=== PATIENT | male | born 1945 | race Caucasian/White ===

== ENCOUNTER → 2021-06-11 | Outpatient (CLI) | payer OTHER ==
[~2021-06-11] MED LIST: B-121000 MCG PO; DABI150C PO; DIGO.125 PO; ERYT.5TO OS; GLIM4 PO; KRILL OIL500 MG PO; LISI20 PO; METF500 PO; METO50 PO; SIMV10 PO; SITA100T2 PO; TAMS.4ER PO
== END | disposition home or self-care (01) ==
LOC: LAB 14:09 → LAB SHORT 14:09
DX: L57.0 Actinic keratosis (principal)
CPT/HCPCS: 88305

== ENCOUNTER 2022-10-31 08:36 | Emergency (ER) | payer OTHER ==
[~2022-10-31] VITALS: Ht 170.2 cm; Wt 106.6 kg
[2022-10-31] MEDS ORDERED: JANTOVEN4 M2 PO (09:09)
[2022-10-31 09:40] LABS: BASOPHILS ABSOLUTE AUTO 0.03 K/mm3 (0.00-0.23); BASOPHILS PERCENT AUTO 0 % (0-2); EOSINOPHILS ABSOLUTE AUTO 0.57 K/mm3 (0.00-0.68); EOSINOPHILS PERCENT AUTO 5 % (0-6); Hemoglobin 11.1 g/dL (13.5-17.5); IMMATURE GRAN ABSOLUTE AUTO 0.12 K/mm3 (0.00-0.10); IMMATURE GRAN PERCENT AUTO 1 % (0-1); LYMPHOCYTES ABSOLUTE AUTO 1.47 K/mm3 (0.84-5.20); LYMPHOCYTES PERCENT AUTO 12 % (21-46); MONOCYTES ABSOLUTE AUTO 1.15 K/mm3 (0.16-1.47); MONOCYTES PERCENT AUTO 9 % (4-13); Mean Corpuscular HGB 28.2 pg (26.0-34.0); Mean Corpuscular HGB Conc 31.7 g/dL (31.5-36.5); Mean Corpuscular Volume 89 fL (80-100); Mean Platelet Volume 10.3 fL (9.1-12.4); NEUTROPHILS ABSOLUTE AUTO 8.99 K/mm3 (1.96-9.15); NEUTROPHILS PERCENT AUTO 73 % (41-73); Platelet Count 203 K/mm3 (150-400); RDW Coefficient Variation 16.1 % (11.7-14.2); RDW Standard Deviation 52.5 fL (35.1-46.3); Red Blood Cell Count 3.94 M/mm3 (4.30-5.90); White Blood Cell Count 12.33 K/mm3 (4.00-11.30)
[2022-10-31 09:50] LABS: Albumin/Globulin Ratio 0.7 (0.8-1.8); Bilirubin, Total 2.3 mg/dL (0.1-1.0); Bun/Creatinine Ratio 24.3 (12.0-20.0); Calcium, Blood 10.3 mg/dL (8.5-10.1); Creatinine, Blood 1.03 mg/dL (0.60-1.20); Globulin, Blood 4.1 g/dL (2.2-4.0); Potassium, Blood 4.3 mmol/L (3.5-5.5); Total Protein, Blood 7.1 g/dL (6.4-8.2)
[2022-10-31 10:03] LABS: Prothrombin Time Results >90.0 Sec (9.7-11.5)
[2022-10-31 10:07] LABS: International Normalized Ratio >10.00
== END 2022-10-31 12:42 | disposition home or self-care (01) ==
LOC: ER 08:36
PROVIDERS: Physician Assistant
DX: R07.9 Chest pain, unspecified (principal); R79.1 Abnormal coagulation profile; E11.9 Type 2 diabetes mellitus without complications; I48.91 Unspecified atrial fibrillation; G47.30 Sleep apnea, unspecified; Z88.0 Allergy status to penicillin; Z95.0 Presence of cardiac pacemaker; Z79.899 Other long term (current) drug therapy; Z79.01 Long term (current) use of anticoagulants; Z79.84 Long term (current) use of oral hypoglycemic drugs
CPT/HCPCS: 71045; 76705; 80053; 83880; 84484; 85025; 85610; 93005; 93010; 99285-25; A9270

== ENCOUNTER → 2023-02-04 | Outpatient (CLI) | payer OTHER ==
[~2023-02-04] MED LIST changes: +JANTOVEN4 M2 PO
[2023-02-04 14:15] LABS: BASOPHILS ABSOLUTE AUTO 0.06 K/mm3 (0.00-0.23); BASOPHILS PERCENT AUTO 1 % (0-2); EOSINOPHILS ABSOLUTE AUTO 0.52 K/mm3 (0.00-0.68); EOSINOPHILS PERCENT AUTO 9 % (0-6); IMMATURE GRAN ABSOLUTE AUTO 0.04 K/mm3 (0.00-0.10); IMMATURE GRAN PERCENT AUTO 1 % (0-1); LYMPHOCYTES PERCENT AUTO 24 % (21-46); MONOCYTES ABSOLUTE AUTO 0.67 K/mm3 (0.16-1.47); MONOCYTES PERCENT AUTO 12 % (4-13); Mean Corpuscular HGB 28.6 pg (26.0-34.0); Mean Corpuscular HGB Conc 32.1 g/dL (31.5-36.5); Mean Corpuscular Volume 89 fL (80-100); Mean Platelet Volume 8.8 fL (9.1-12.4); NEUTROPHILS ABSOLUTE AUTO 2.94 K/mm3 (1.96-9.15); NEUTROPHILS PERCENT AUTO 53 % (41-73); Platelet Count 218 K/mm3 (150-400); RDW Coefficient Variation 18.3 % (11.7-14.2); RDW Standard Deviation 58.7 fL (35.1-46.3); Red Blood Cell Count 3.15 M/mm3 (4.30-5.90); White Blood Cell Count 5.53 K/mm3 (4.00-11.30)
[2023-02-04 15:04] LABS: Albumin, Blood 3.1 g/dL (3.4-5.0); Albumin/Globulin Ratio 1.1 (0.8-1.8); Bilirubin, Total 0.8 mg/dL (0.1-1.0); Bun/Creatinine Ratio 13.4 (12.0-20.0); Calcium, Blood 8.6 mg/dL (8.5-10.1); Creatinine, Blood 1.12 mg/dL (0.60-1.20); Globulin, Blood 2.9 g/dL (2.2-4.0); Potassium, Blood 3.6 mmol/L (3.5-5.5)
== END | disposition home or self-care (01) ==
LOC: LAB SHORT 14:10 → LAB 14:10
PROVIDERS: Physician Assistant
DX: N18.9 Chronic kidney disease, unspecified (principal); M79.89 Other specified soft tissue disorders
CPT/HCPCS: 80053; 83880; 85025

== ENCOUNTER 2023-02-28 21:42 | Inpatient (IN) | payer OTHER ==
[~2023-02-28] VITALS: Ht 172.7 cm; Wt 106.0 kg
[2023-02-28 22:26] LABS: Bicarbonate Venous 25.1 mmol/L (24.0-30.0); PCO2 Venous 39.1 mmHg (38-42); pH Blood Venous 7.42 (7.34-7.37)
[2023-02-28 22:28] LABS: BASOPHILS ABSOLUTE AUTO 0.03 K/mm3 (0.00-0.23); BASOPHILS PERCENT AUTO 0 % (0-2); EOSINOPHILS ABSOLUTE AUTO 0.18 K/mm3 (0.00-0.68); EOSINOPHILS PERCENT AUTO 3 % (0-6); Hematocrit 26.2 % (37.0-53.0); Hemoglobin 8.5 g/dL (13.5-17.5); IMMATURE GRAN ABSOLUTE AUTO 0.33 K/mm3 (0.00-0.10); IMMATURE GRAN PERCENT AUTO 5 % (0-1); LYMPHOCYTES ABSOLUTE AUTO 0.38 K/mm3 (0.84-5.20); LYMPHOCYTES PERCENT AUTO 6 % (21-46); MONOCYTES ABSOLUTE AUTO 0.77 K/mm3 (0.16-1.47); MONOCYTES PERCENT AUTO 11 % (4-13); Mean Corpuscular HGB 29.7 pg (26.0-34.0); Mean Corpuscular HGB Conc 32.4 g/dL (31.5-36.5); Mean Corpuscular Volume 92 fL (80-100); Mean Platelet Volume 9.7 fL (9.1-12.4); NEUTROPHILS PERCENT AUTO 75 % (41-73); Platelet Count 126 K/mm3 (150-400); RDW Coefficient Variation 18.7 % (11.7-14.2); RDW Standard Deviation 62.7 fL (35.1-46.3); Red Blood Cell Count 2.86 M/mm3 (4.30-5.90); White Blood Cell Count 6.79 K/mm3 (4.00-11.30)
[2023-02-28 22:36] LABS: Influenza A, PCR NEGATIVE (NEGATIVE); Influenza B, PCR NEGATIVE (NEGATIVE); Resp Syncytial Virus, PCR NEGATIVE (NEGATIVE)
[2023-02-28 22:47] LABS: Albumin, Blood 3.1 g/dL (3.4-5.0); Albumin/Globulin Ratio 1.1 (0.8-1.8); Bilirubin, Total 0.9 mg/dL (0.1-1.0); Bun/Creatinine Ratio 16.4 (12.0-20.0); Calcium, Blood 8.3 mg/dL (8.5-10.1); Creatinine, Blood 1.22 mg/dL (0.60-1.20); Globulin, Blood 2.8 g/dL (2.2-4.0); Potassium, Blood 4.5 mmol/L (3.5-5.5); Total Protein, Blood 5.9 g/dL (6.4-8.2)
[2023-02-28] MEDS ORDERED: FUROSEMIDE40 MG PO (23:26)
[2023-02-28] MEDS ORDERED: ELIQUIS2.5 M1 PO (23:26)
[2023-02-28 23:28] LABS: SARS-Cov-2 (COVID-19) PCR, MMC POSITIVE (NEGATIVE)
[2023-02-28] MEDS ORDERED: SEMGLEE (Y100 UNIT/2 SC (23:28)
[2023-02-28] MEDS ORDERED: K-Dur10 MEQ PO (23:28)
[2023-02-28] MEDS ORDERED: ALLO300 PO (23:29)
[2023-02-28] MEDS ORDERED: ATOR20 PO (23:30)
[2023-03-01 02:23] LABS: Digoxin (Lanoxin) 0.56 ug/mL (0.80-2.00)
[2023-03-01 02:27] VITALS: BP 112/69
--- NOTE | 2023-03-01 06:41 | NUR ---
SHIFT SUMMARY PATIENT WAS AN ER ADMIT AROUND 0220 THIS MORNING. HE IS ALERT AND ORIENTED X4, NO NEURO DEFICITS NOTED. PATIENT STEADY ON HIS FEET AND ABLE TO SAFELY AMBULATE WITHOUT ASSISTANCE. PATIENT ARRIVED ON ROOM AIR, SPO2 95%. PATIENT TOLERATED WALKING TO THE BATHROOM AND BACK WITH MINIMAL SHORTNESS OF BREATH NOTED. VITAL SIGNS STABLE. PATIENT DENIES CHEST PAIN, 4+ PITTING EDEMA BLE, LEGS ELEVATED. PATIENT WEARING CPAP TO SLEEP. RECEIVED INITIAL DOSE OF REMDESIVIR. NO ACUTE ISSUES NOTED. CALL LIGHT WITHIN REACH.
[2023-03-01 07:01] LABS: BASOPHILS ABSOLUTE AUTO 0.03 K/mm3 (0.00-0.23); BASOPHILS PERCENT AUTO 1 % (0-2); EOSINOPHILS ABSOLUTE AUTO 0.24 K/mm3 (0.00-0.68); EOSINOPHILS PERCENT AUTO 5 % (0-6); Hematocrit 25.7 % (37.0-53.0); Hemoglobin 8.4 g/dL (13.5-17.5); IMMATURE GRAN ABSOLUTE AUTO 0.25 K/mm3 (0.00-0.10); IMMATURE GRAN PERCENT AUTO 5 % (0-1); LYMPHOCYTES ABSOLUTE AUTO 0.24 K/mm3 (0.84-5.20); LYMPHOCYTES PERCENT AUTO 5 % (21-46); MONOCYTES ABSOLUTE AUTO 0.86 K/mm3 (0.16-1.47); MONOCYTES PERCENT AUTO 16 % (4-13); Mean Corpuscular HGB 30.3 pg (26.0-34.0); Mean Corpuscular HGB Conc 32.7 g/dL (31.5-36.5); Mean Corpuscular Volume 93 fL (80-100); Mean Platelet Volume 9.7 fL (9.1-12.4); NEUTROPHILS ABSOLUTE AUTO 3.69 K/mm3 (1.96-9.15); NEUTROPHILS PERCENT AUTO 70 % (41-73); Platelet Count 111 K/mm3 (150-400); RDW Coefficient Variation 18.9 % (11.7-14.2); RDW Standard Deviation 63.5 fL (35.1-46.3); Red Blood Cell Count 2.77 M/mm3 (4.30-5.90); White Blood Cell Count 5.31 K/mm3 (4.00-11.30)
[2023-03-01 07:21] LABS: Bun/Creatinine Ratio 16.1 (12.0-20.0); Calcium, Blood 8.3 mg/dL (8.5-10.1); Creatinine, Blood 1.18 mg/dL (0.60-1.20); Potassium, Blood 3.8 mmol/L (3.5-5.5)
[2023-03-01 08:18] VITALS: BP 119/72
[2023-03-01] MEDS ORDERED: ALBU90OI INH (12:47)
[2023-03-01] MEDS ORDERED: DECADRON6 M1 PO (12:48)
[2023-03-01] MEDS ORDERED: CEPACOL LOZENGES MT (12:53)
[2023-03-01 13:39] VITALS: BP 121/76
--- NOTE | 2023-03-01 15:40 | NUR ---
DISCHARGE SUMMARY PT ALERT, ORIENTED x4; CALM AND COOPERATIVER WITH CARE. PT SPO2 >90% ON RA, BREATHING EVEN AND UNLABORED, DENIES SOB. PT DENIES PAIN, CHEST PAIN/PRESSURE, NASUEA AND DIZZINESS. EDEMA NOTED TO BLE, PT STATES NORMAL FOR HIM. OTHER VSS. NO OTHER ACUTE CHANGES NOTED. PT EDUCATED ON DISCHARGE INSTRUCTION, FOLLOW UP APPOINTMENT, AND MEDICATIONS. PT LEFT VIA WHEELCHAIR AT APPROX 1354 WITH SON.
== END 2023-03-01 14:13 | disposition home or self-care (01) | DRG 871 ==
LOC: ER 21:42 → PCU 03-01 01:33
PROVIDERS: Emergency Medicine; Student in an Organized Health Care Education/Training Program; ADMIT Internal Medicine
PROC: XW033E5 Introduction of Remdesivir Anti-infective into Peripheral Vein, Percutaneous Approach, New Technology Group 5 (ICD-10-PCS; principal; 2023-03-01)
PROC: 3E0DX3Z Introduction of Anti-inflammatory into Mouth and Pharynx, External Approach (ICD-10-PCS; 2023-03-01)
PROC: 8E0ZXY6 Isolation (ICD-10-PCS; 2023-03-01)
PROC: 5A09357 Assistance with Respiratory Ventilation, Less than 24 Consecutive Hours, Continuous Positive Airway Pressure (ICD-10-PCS; 2023-03-01)
DX: A41.89 Other specified sepsis (principal); J96.01 Acute respiratory failure with hypoxia; U07.1 COVID-19; C85.90 Non-Hodgkin lymphoma, unspecified, unspecified site; N17.9 Acute kidney failure, unspecified; R65.20 Severe sepsis without septic shock; E11.9 Type 2 diabetes mellitus without complications; I48.91 Unspecified atrial fibrillation; K64.8 Other hemorrhoids; G47.33 Obstructive sleep apnea (adult) (pediatric); T45.1X5A Adverse effect of antineoplastic and immunosuppressive drugs, initial encounter; E87.70 Fluid overload, unspecified; Z79.01 Long term (current) use of anticoagulants; Z86.010 Personal history of colon polyps; Z98.52 Vasectomy status; Z95.0 Presence of cardiac pacemaker; Z98.890 Other specified postprocedural states; Z88.0 Allergy status to penicillin; Z79.4 Long term (current) use of insulin; Z79.84 Long term (current) use of oral hypoglycemic drugs; Z79.899 Other long term (current) drug therapy; Z99.89 Dependence on other enabling machines and devices; Z79.02 Long term (current) use of antithrombotics/antiplatelets; Z79.811 Long term (current) use of aromatase inhibitors
CPT/HCPCS: 0241U; 36415; 71045; 80048; 80053; 80162; 82803; 82947; 83036; 83605; 83880; 84484; 85025; 87040; 93005; 93010; 94644; 94660; 94664; 94762; 99285-25; A9270; J0248; J1815; J7050

== ENCOUNTER 2023-03-06 19:47 | Inpatient (IN) | payer OTHER, MEDICARE ==
[~2023-03-06] VITALS: Ht 172.7 cm; Wt 94.0 kg
[~2023-03-06 19:47] MED LIST changes: +ALBU90OI INH; +ALLO300 PO; +ATOR20 PO; +CEPACOL LOZENGES MT; +DECADRON6 M1 PO; +ELIQUIS2.5 M1 PO; +FUROSEMIDE40 MG PO; +K-Dur10 MEQ PO; +SEMGLEE (Y100 UNIT/2 SC
[2023-03-06 20:32] LABS: Hematocrit 29.4 % (37.0-53.0); Hemoglobin 9.6 g/dL (13.5-17.5); Mean Corpuscular HGB Conc 32.7 g/dL (31.5-36.5); Mean Corpuscular Volume 92 fL (80-100); Mean Platelet Volume 9.1 fL (9.1-12.4); NRBC ABSOLUTE 0.03 K/mm3 (0.00-0.02); NRBC Auto 0.3 /100 WBC (0.0-0.2); Platelet Count 184 K/mm3 (150-400); RDW Standard Deviation 63.1 fL (35.1-46.3); White Blood Cell Count 10.85 K/mm3 (4.00-11.30)
[2023-03-06 20:52] LABS: BAND PERCENT MAN 1 % (0-8); BASOPHILS PERCENT MAN 0 % (0-2); EOSINOPHILS PERCENT MAN 0 % (0-6); LYMPHOCYTES ABSOLUTE MAN 0.54 K/mm3 (0.84-5.20); LYMPHOCYTES PERCENT MAN 5 % (21-46); METAMYELOCYTE PERCENT MAN 1 % (0-0); MONOCYTES ABSOLUTE MAN 0.65 K/mm3 (0.16-1.47); MONOCYTES PERCENT MAN 6 % (4-13); MYELOCYTE ABSOLUTE MAN 0.32 K/mm3 (0.00-0.00); MYELOCYTE PERCENT MAN 3 % (0-0); NEUTROPHILS ABSOLUTE MAN 9.22 K/mm3 (1.96-9.15); SEG NEUTROPHILS PERCENT MAN 84 % (41-73); TOTAL CELLS COUNTED 100
[2023-03-06 21:14] LABS: Alanine Aminotransfer (ALT/SGP 58 U/L (12-78); Albumin, Blood 3.4 g/dL (3.4-5.0); Albumin/Globulin Ratio 1.1 (0.8-1.8); Alk Phos 214 U/L (50-136); Anion Gap 5 mmol/L (6-16); Aspartate Aminotrans (AST/SGOT 18 U/L (12-37); Bilirubin, Total 0.7 mg/dL (0.1-1.0); Blood Urea Nitrogen 23 mg/dL (8-24); Bun/Creatinine Ratio 18.5 (12.0-20.0); CO2, Blood 25 mmol/L (21-32); Calcium, Blood 8.9 mg/dL (8.5-10.1); Chloride, Blood 105 mmol/L (98-108); Creatinine, Blood 1.24 mg/dL (0.60-1.20); Digoxin (Lanoxin) 0.38 ug/mL (0.80-2.00); Glomerular Filtration Rate 59 (60-); Glucose, Blood 104 mg/dL (70-99); Potassium, Blood 4.4 mmol/L (3.5-5.5); Sodium, Blood 135 mmol/L (136-145); Total Protein, Blood 6.4 g/dL (6.4-8.2)
[2023-03-06 21:15] LABS: Base Excess Venous -0.8 mmol/L; Bicarbonate Venous 23.9 mmol/L (24.0-30.0); PCO2 Venous 34.9 mmHg (38-42); pH Blood Venous 7.44 (7.34-7.37)
[2023-03-06 22:59] LABS: Source, Urine Clean Catch
[2023-03-06 23:03] LABS: Bilirubin, Urine Neg (Neg); Blood, Urine Neg (Neg); Glucose Qualitative, Urine Neg (Neg); Ketones, Urine Neg (Neg); Leukocyte Esterase, Urine Neg (Neg); Nitrite, Urine Neg (Neg); Protein, Urine 2+ (Neg); Specific Gravity, Urine 1.015 (1.003-1.022); Urobilinogen, Urine NORM (Normal)
[2023-03-06 23:05] LABS: Appearance, Urine Clear (Clear); Color, Urine Yellow (P-Yellow)
[2023-03-06 23:09] LABS: Amorphous Mod (0-Heavy); Bacteria Not Seen /hpf; Red Blood Cells, Urine Not Seen /hpf (0-2); Squamous Epithelial Cells Not Seen /hpf (Few); White Blood Cells, Urine 0-2 /hpf (0-5)
[2023-03-06 23:43] VITALS: BP 137/86
[2023-03-07 03:40] LABS: Hematocrit 26.3 % (37.0-53.0); Hemoglobin 8.5 g/dL (13.5-17.5); Mean Corpuscular HGB 29.5 pg (26.0-34.0); Mean Corpuscular HGB Conc 32.3 g/dL (31.5-36.5); Mean Corpuscular Volume 91 fL (80-100); Mean Platelet Volume 8.9 fL (9.1-12.4); Platelet Count 126 K/mm3 (150-400); RDW Coefficient Variation 18.9 % (11.7-14.2); RDW Standard Deviation 62.2 fL (35.1-46.3); Red Blood Cell Count 2.88 M/mm3 (4.30-5.90); White Blood Cell Count 9.28 K/mm3 (4.00-11.30)
[2023-03-07 03:45] VITALS: BP 128/71
[2023-03-07 03:58] LABS: Albumin/Globulin Ratio 1.2 (0.8-1.8); Bilirubin, Total 0.6 mg/dL (0.1-1.0); Bun/Creatinine Ratio 19.5 (12.0-20.0); Calcium, Blood 8.5 mg/dL (8.5-10.1); Creatinine, Blood 1.18 mg/dL (0.60-1.20); Globulin, Blood 2.6 g/dL (2.2-4.0); Potassium, Blood 4.3 mmol/L (3.5-5.5); Total Protein, Blood 5.6 g/dL (6.4-8.2)
[2023-03-07 04:21] LABS: BAND PERCENT MAN 5 % (0-8); BASOPHILS PERCENT MAN 0 % (0-2); EOSINOPHILS PERCENT MAN 0 % (0-6); LYMPHOCYTES ABSOLUTE MAN 0.09 K/mm3 (0.84-5.20); LYMPHOCYTES PERCENT MAN 1 % (21-46); MONOCYTES ABSOLUTE MAN 0.37 K/mm3 (0.16-1.47); MONOCYTES PERCENT MAN 4 % (4-13); NEUTROPHILS ABSOLUTE MAN 8.81 K/mm3 (1.96-9.15); SEG NEUTROPHILS PERCENT MAN 90 % (41-73); TOTAL CELLS COUNTED 100
--- NOTE | 2023-03-07 06:14 | NUR ---
MORTAR WORKER SUMMARY ASSUMED CARE OF THE PT AT 2325 UPON ADMISSION FROM THE ED. PT IS ALERT AND ORIENTED X4, INDEPENDENT WITH URINAL AND IN THE ROOM. HE REPORTS IMPROVEMENT IN HIS SHORTNESS OF BREATH AND FEELS LIKE HE COULD GO HOME TODAY. PT GIVEN IV LASIX AND NOTED TO HAVE AROUND 3000 MLS OF OUTPUT. PT SATURATIONS REMAIN IN THE HIGH 90S ON RA. HE WAS IN AFIB IN THE 130S ON ARRIVAL TO THE FLOOR BUT HAD IMPROVEMENT IN HR FOLLOWING ER ADMINISTRATION OF DIGOXIN AND BEING GIVEN HIS NIGHTLY DOSE OF METOPROLOL. D DIMER WAS SLIGHTLY ELEVATED SO CT PE STUDY WAS DONE SHORTLY AFTER GETTING TO THE FLOOR. NOTED TO BE NEGATIVE EXCEPT FOR LYMPHOMA IN THE SPLEEN, WHICH IS A KNOWN CONDITION FOR THE PT. HR CURRENTLY IN THE 60S AND 70S. CPAP AT NIGHT. PT APPEARS IMPROVED.
[2023-03-07 07:56] VITALS: BP 156/85
[2023-03-07 11:55] LABS: Bun/Creatinine Ratio 22.6 (12.0-20.0); Calcium, Blood 8.5 mg/dL (8.5-10.1); Creatinine, Blood 1.15 mg/dL (0.60-1.20); Potassium, Blood 4.8 mmol/L (3.5-5.5)
[2023-03-07 12:06] VITALS: BP 128/74
[2023-03-07 16:04] VITALS: BP 132/74
--- NOTE | 2023-03-07 18:25 | NUR ---
SHIFT SUMMARY; ASSUMED CARE AT 0700. A/A/OX4, INDEPENDANT IN ROOM AND WITH ADL'S. INSULIN COVERAGE PER EMAR. ECHO COMPLETED TODAY. ATRIAL FIB IN 80'S DURING SHIFT, DENIES CP OR SOB. VSS, NO ACUTE MEDICAL CHANGES, WILL CONTINUE TO MONITOR AND TREAT UNTIL CHANGE OF SHIFT.
[2023-03-07 20:58] VITALS: BP 144/85
[2023-03-08 01:11] VITALS: BP 136/80
[2023-03-08 03:54] LABS: Hematocrit 25.7 % (37.0-53.0); Hemoglobin 8.5 g/dL (13.5-17.5)
[2023-03-08 03:55] VITALS: BP 139/75
[2023-03-08 04:13] LABS: Bun/Creatinine Ratio 23.1 (12.0-20.0); Calcium, Blood 8.4 mg/dL (8.5-10.1); Creatinine, Blood 1.3 mg/dL (0.60-1.20); Potassium, Blood 4.3 mmol/L (3.5-5.5)
--- NOTE | 2023-03-08 06:23 | NUR ---
JUNIOR SYSTEMS ADMINISTRATOR SUMMARY ASSUMED CARE OF THE PT AT 1900. HE IS ALERT AND ORIENTED X4, INDEPENDENT. COOPERATIVE WITH CARE. PT ABLE TO USE URINAL INDEPENDENTLY AND CALLS APPROPRIATELY. HEART RATE HAS REMAINED PACED IN THE 60S ON TELE. SATURATIONS HAVE STAYED IN THE HIGH 90S BOTH ON RA AND ON CPAP. NO CHEST PAIN. 3+ PITTING EDEMA TO BLE. NO ACUTE EVENTS.
[2023-03-08 12:07] VITALS: BP 120/78
[2023-03-08 13:43] LABS: Bun/Creatinine Ratio 23.3 (12.0-20.0); Calcium, Blood 8.8 mg/dL (8.5-10.1); Creatinine, Blood 1.29 mg/dL (0.60-1.20); Potassium, Blood 4.3 mmol/L (3.5-5.5)
[2023-03-08 16:31] VITALS: BP 128/70
--- NOTE | 2023-03-08 17:42 | NUR ---
SHIFT SUMMARY; ASSUMED CARE AT 0700. A/A/OX4, INDEPENDANT IN ROOM AND WITH URINAL. AFIB WITH HR 90'S, VSS, EDEMA 3+ TO LOWER EXTREMETIES, INSULIN COVERAGE PER EMAR. NO ACUTE MEDICAL CHANGES, WILL CONTINUE TO MONITOR AND TREAT UNTIL CHANGE OF SHIFT.
[2023-03-08 19:59] VITALS: BP 127/71
--- NOTE | 2023-03-08 20:30 | NUR ---
PATIENT RESTING QUIETLY IN BED WATCHING TV. A&O X3 UP IN ROOM WITHOUT DIFFICULTY. LUNG SOUNDS WITH SCATTERED EXPIATORY WHEEZES. REMAINS ON RA, HOME CPAP FOR SLEEP. BILAT LEG EDEMA CONTINUES
--- NOTE | 2023-03-08 21:21 | NUR ---
DOCTOR LUCA NOTIFIED OF HIGH GLUCOSE LEVEL, SLIDING SCALE INCREASED TO MED SS. AND WILL RECHECK ONE HOUR AFTER COVERAGE GIVEN
[2023-03-08 23:16] VITALS: BP 142/83
--- NOTE | 2023-03-08 23:32 | NUR ---
DOCTOR LUCA NOTIFIED OF REPEAT GLUCOSE, WILL COVER WITH INSULIN SLIDING SCALE.
[2023-03-09 04:25] VITALS: BP 129/75
[2023-03-09 04:49] LABS: Hematocrit 26.5 % (37.0-53.0); Hemoglobin 8.8 g/dL (13.5-17.5); Mean Corpuscular HGB 30.2 pg (26.0-34.0); Mean Corpuscular HGB Conc 33.2 g/dL (31.5-36.5); Mean Corpuscular Volume 91 fL (80-100); Mean Platelet Volume 9.9 fL (9.1-12.4); NRBC ABSOLUTE 0.02 K/mm3 (0.00-0.02); NRBC Auto 0.2 /100 WBC (0.0-0.2); Platelet Count 143 K/mm3 (150-400); RDW Coefficient Variation 18.7 % (11.7-14.2); RDW Standard Deviation 62.4 fL (35.1-46.3); Red Blood Cell Count 2.91 M/mm3 (4.30-5.90); White Blood Cell Count 10.16 K/mm3 (4.00-11.30)
[2023-03-09 05:14] LABS: Anion Gap 6 mmol/L (6-16); Blood Urea Nitrogen 33 mg/dL (8-24); Bun/Creatinine Ratio 29.2 (12.0-20.0); CO2, Blood 29 mmol/L (21-32); Calcium, Blood 8.6 mg/dL (8.5-10.1); Chloride, Blood 101 mmol/L (98-108); Creatinine, Blood 1.13 mg/dL (0.60-1.20); Glomerular Filtration Rate 66 (60-); Glucose, Blood 196 mg/dL (70-99); Sodium, Blood 136 mmol/L (136-145)
--- NOTE | 2023-03-09 05:59 | NUR ---
SUMMARY PATIENT UP IN ROOM WITHOUT DIFFICULTY. SLEEPING WITH HOME CPAP IN PLACE. GLUCOSE HIGH DURING THE NIGHT. CHANGED TO MEDIUM SLIDING SCALE AND MEDICATED TWICE DURING THE NIGHT WITH SLIDING SCALE.
[2023-03-09 08:20] VITALS: BP 133/72
[2023-03-09 11:58] VITALS: BP 114/99
--- NOTE | 2023-03-09 17:17 | NUR ---
SHIFT SUMMARY ASSUMED CARE OF PT AT 0700. NO ACUTE CHANGES T/O THE SHIFT. SWITCHED IV LASIX TO PO BUMEX. PT HAS HAD NO COMPLAINTS T/O THE DAY. SEE DOCUMENTED VS AND ASSESSMENT. PT IS ABLE TO USE CALL LIGHT FOR NEEDS, CALL LIGHT IN REACH, WILL CONTINUE TO MONITOR AND GIVE REPORT TO NOC SHIFT RN.
[2023-03-09 19:41] VITALS: BP 134/72
[2023-03-09 23:30] VITALS: BP 133/67
[2023-03-10 04:01] VITALS: BP 138/70
[2023-03-10 04:05] LABS: Hematocrit 28.8 % (37.0-53.0); Hemoglobin 9.4 g/dL (13.5-17.5)
[2023-03-10 04:23] LABS: Bun/Creatinine Ratio 26.5 (12.0-20.0); Calcium, Blood 8.8 mg/dL (8.5-10.1); Creatinine, Blood 1.13 mg/dL (0.60-1.20); Potassium, Blood 3.9 mmol/L (3.5-5.5)
--- NOTE | 2023-03-10 04:45 | NUR ---
SHIFT SUMMARY THIS RN ASSUMED CARE OF PATIENT AT 1900. REPORT TAKEN FROM ZAN SUMMERS. NO ACUTE CHANGES OVERNIGHT. VITALS STABLE. ON CPAP FOR NOC. ALERT AND ORIENTED FULLY. ABLE TO MAKE NEEDS KNOWN. INDEPENDENT WITH ADL'S. BLE EDEMA NOTED. BED IN LOWEST POSITION AND CALL LIGHT WITHIN REACH. THIS RN WILL CONTINUE TO MONITOR UNTIL SHIFT CHANGE AT 0700.
[2023-03-10 08:35] VITALS: BP 153/78
[2023-03-10] MEDS ORDERED: BUME2 PO (10:55)
[2023-03-10] MEDS ORDERED: DIGOX250 MCG PO (10:56)
[2023-03-10 12:00] VITALS: BP 140/75
--- NOTE | 2023-03-10 12:32 | NUR ---
DISCHARGE NOTE. IV REMOVED AND DISCUSSED NEW MEDICATION REGIMEN AT BEDSIDE. PATIENT VERBALIZED UNDERSTANDING AND HANDOUTS PROVIDED IN DISCHARGE FOLDER. DISEASE PROCESS DISCUSSED AND WRITTEN EDUCATION MATERIAL SENT HOME WITH PATIENT. PATIENT INSTRUCTED TO FOLLOW UP WITH HIS PRIMARY CARE IN ONE TO TWO WEEKS AND TO OBTAIN LABS. PATIENT STATED PLANS TO COMPLY AND SCHEDULE APPOINTMENTS NEEDED. PATIENT DISCHARGED WITH ALL PERSONAL BELONGINGS. NO FURTHER DISCHARGE NEEDS IDENTIFIED AT THIS TIME.
== END 2023-03-10 12:24 | disposition home or self-care (01) | DRG 177 ==
LOC: ER 19:47 → PCU 19:48 → ER 19:48 → PCU 19:48
PROVIDERS: Emergency Medicine; Family Medicine; Family Medicine Adult Medicine; Student in an Organized Health Care Education/Training Program; ADMIT Student in an Organized Health Care Education/Training Program
PROC: 3E0DX3Z Introduction of Anti-inflammatory into Mouth and Pharynx, External Approach (ICD-10-PCS; principal; 2023-03-07)
PROC: 8E0ZXY6 Isolation (ICD-10-PCS; 2023-03-07)
PROC: 5A09357 Assistance with Respiratory Ventilation, Less than 24 Consecutive Hours, Continuous Positive Airway Pressure (ICD-10-PCS; 2023-03-07)
DX: U07.1 COVID-19 (principal); I50.31 Acute diastolic (congestive) heart failure; J96.01 Acute respiratory failure with hypoxia; C85.97 Non-Hodgkin lymphoma, unspecified, spleen; I48.91 Unspecified atrial fibrillation; G47.33 Obstructive sleep apnea (adult) (pediatric); E11.22 Type 2 diabetes mellitus with diabetic chronic kidney disease; R79.0 Abnormal level of blood mineral; R91.1 Solitary pulmonary nodule; D73.5 Infarction of spleen; D73.4 Cyst of spleen; D63.1 Anemia in chronic kidney disease; K64.8 Other hemorrhoids; R79.1 Abnormal coagulation profile; R16.1 Splenomegaly, not elsewhere classified; N18.9 Chronic kidney disease, unspecified; Z79.4 Long term (current) use of insulin; Z88.0 Allergy status to penicillin; Z86.010 Personal history of colon polyps; Z98.52 Vasectomy status; Z95.0 Presence of cardiac pacemaker; Z98.890 Other specified postprocedural states; Z79.51 Long term (current) use of inhaled steroids; Z79.811 Long term (current) use of aromatase inhibitors; Z79.84 Long term (current) use of oral hypoglycemic drugs; Z79.01 Long term (current) use of anticoagulants; Z79.899 Other long term (current) drug therapy; I25.2 Old myocardial infarction; Z79.02 Long term (current) use of antithrombotics/antiplatelets
CPT/HCPCS: 36415; 71045; 71260; 80048; 80053; 80069; 80162; 81001; 82803; 82947; 83880; 84484; 85014; 85018; 85025; 85027; 85379; 93005; 93010; 93306; 94640; 94660; 94664; 94762; 96360; 96372; 96374; 96375; 99285-25; A9270; G0378; J1100; J1160; J1650; J1815; J1940; J7030; Q9967

== ENCOUNTER → 2023-04-07 | Outpatient (CLI) | payer OTHER ==
[~2023-04-07] MED LIST changes: +BUME2 PO; +DIGOX250 MCG PO
== END | disposition home or self-care (01) ==
LOC: LAB SHORT 14:46 → PLD 14:46
DX: D04.62 Carcinoma in situ of skin of left upper limb, including shoulder (principal)
CPT/HCPCS: 88305

== ENCOUNTER 2023-05-11 13:39 | Emergency (ER) | payer OTHER ==
[~2023-05-11] VITALS: Ht 172.7 cm; Wt 90.7 kg
[2023-05-11 13:43] VITALS: BP 121/66
[2023-05-11 13:57] LABS: Base Excess Venous 3.8 mmol/L; Bicarbonate Venous 27.2 mmol/L (24.0-30.0); PCO2 Venous 44.8 mmHg (38-42); pH Blood Venous 7.41 (7.34-7.37)
== END 2023-05-11 16:30 | disposition home or self-care (01) ==
LOC: ER 13:39
PROVIDERS: Physician Assistant
DX: E11.65 Type 2 diabetes mellitus with hyperglycemia (principal); C85.90 Non-Hodgkin lymphoma, unspecified, unspecified site; G47.30 Sleep apnea, unspecified; I48.91 Unspecified atrial fibrillation; Z86.010 Personal history of colon polyps; Z88.0 Allergy status to penicillin; Z79.01 Long term (current) use of anticoagulants; Z79.4 Long term (current) use of insulin; Z79.84 Long term (current) use of oral hypoglycemic drugs; Z79.899 Other long term (current) drug therapy
CPT/HCPCS: 36415; 80053; 82803; 82947; 83615; 85025; 96360; 99283-25; J7030

== ENCOUNTER 2023-10-08 11:07 | Inpatient (IN) | payer OTHER ==
[2023-10-08] VITALS (11 sets, daily range): BP systolic 91–117; BP diastolic 49–64
[~2023-10-08] VITALS: Ht 172.7 cm; Wt 98.1 kg
[~2023-10-08 11:07] MED LIST changes: -ASCO500 PO; -Acetaminophen325 M1 PO; -FIASP 100100 UNIT/3 SC; -FURO40 PO; -HYDMOR2 PO; -IRON PO; -Loratadine10 MG PO; -OMEP20ER PO
[2023-10-08 11:28] LABS: BASOPHILS ABSOLUTE AUTO 0.05 K/mm3 (0.00-0.23); BASOPHILS PERCENT AUTO 0 % (0-2); EOSINOPHILS PERCENT AUTO 0 % (0-6); Hematocrit 29.9 % (37.0-53.0); Hemoglobin 9.9 g/dL (13.5-17.5); IMMATURE GRAN ABSOLUTE AUTO 0.26 K/mm3 (0.00-0.10); IMMATURE GRAN PERCENT AUTO 2 % (0-1); LYMPHOCYTES PERCENT AUTO 18 % (21-46); MONOCYTES ABSOLUTE AUTO 1.77 K/mm3 (0.16-1.47); MONOCYTES PERCENT AUTO 11 % (4-13); Mean Corpuscular HGB 32.8 pg (26.0-34.0); Mean Corpuscular HGB Conc 33.1 g/dL (31.5-36.5); Mean Corpuscular Volume 99 fL (80-100); NEUTROPHILS PERCENT AUTO 69 % (41-73); Platelet Count 169 K/mm3 (150-400); RDW Coefficient Variation 15.6 % (11.7-14.2); RDW Standard Deviation 55.7 fL (35.1-46.3); Red Blood Cell Count 3.02 M/mm3 (4.30-5.90); White Blood Cell Count 16.88 K/mm3 (4.00-11.30)
[2023-10-08 11:40] LABS: Calcium, Ionized (POC) 1.13 mmol/L (1.10-1.46); Chloride (POC) 93 mmol/L (98-108); Creatinine (POC) 12.1 mg/dL (0.8-1.3); Glucose (ISTAT POC) 69 mg/dL (70-99); Hemoglobin (POC) 10.2 g/dL (13.5-17.5); Sodium (POC) 129 mmol/L (135-148); Total CO2 (POC) 13 mmol/L (21-32)
[2023-10-08 12:06] LABS: Albumin, Blood 3.7 g/dL (3.4-5.0); Albumin/Globulin Ratio 1.2 (0.8-1.8); Bilirubin, Total 0.6 mg/dL (0.1-1.0); Bun/Creatinine Ratio 11.7 (12.0-20.0); Calcium, Blood 9.8 mg/dL (8.5-10.1); Creatinine, Blood 10.8 mg/dL (0.60-1.20); Globulin, Blood 3.2 g/dL (2.2-4.0); Potassium, Blood 6.6 mmol/L (3.5-5.5); Total Protein, Blood 6.9 g/dL (6.4-8.2)
[2023-10-08 12:07] LABS: Digoxin (Lanoxin) 1.15 ug/mL (0.80-2.00)
[2023-10-08 15:26] LABS: Bun/Creatinine Ratio 12.5 (12.0-20.0); Calcium, Blood 9.5 mg/dL (8.5-10.1); Creatinine, Blood 10.1 mg/dL (0.60-1.20); Potassium, Blood 6.3 mmol/L (3.5-5.5)
--- NOTE | 2023-10-08 16:08 | NUR ---
PATIENT ADMIT TO PCU AT 1310. USED SLIDE SHEET TO TRANSFER. ALERT AND ORIENTED X4. PERRLA. BILATERAL HEARING AIDS IN PLACE. OVERALL WEAK WITH BILATERAL SWING SAW OPERATOR STRENGTH AND EXTREMITY MOVEMENTS. DENIES USING ANY CANE OR WALKER AT HOME. TELE SHOWING AFIB WITH HR 80-100'S. PATIENT REPORTS CHRONIC AFIB. SBP 90-110'S. DENIES CHEST PAIN/PRESSURE/PALPITATIONS. EDEMA NOTED TO BLE/ANKLES. PPP. IV FLUIDS INFUSING PER EMAR. ON ROOM AIR SATING ABOVE 95%. DENIES SOB/COUGH. LUNGS SOUNDING CLEAR AND DIM IN BASES. EVEN AND UNLABORED RESPIRATIONS. PATIENT REPORTS WEARING HOME CPAP NIGHTLY. DAUGHTER TO BRING IN HOME CPAP THIS EVENING. CONTINUOUS PULSE OX IN PLACE. COMPLAINS OF MILD ABDOMINAL CRAMPING/ACHE THAT RADIATES TO LOW BACK UPON ADMIT WITH INTERMIT NAUSEA. PATIENT RATED PAIN 3/10. IV REGLAN GIVEN PER EMAR WITH GOOD RELIEF. PATIENT DRINKING WATER AT THIS TIME WITH NO NAUSEA. BOWEL TONES PRESENT. STATES HE HAS REGULAR BOWEL MOVEMENTS, BUT HAS BEEN HAVING TROUBLE URINATING OVER THE PAST TWO DAYS. BLADDER SCAN DONE SHOWING 200 IN BLADDER. PATIENT DENIES URGENCY. Q2 BLOOD SUGARS. SKIN OVERALL C/D/I. PATIENT DENIES BEING PLACED IN HOSPITAL GOWN AT THIS TIME. DR. JEFF UPDATED ON 1400 LABS. PLAN TO DRAW NEXT SET OF LABS AT 1900. PATIENT ORIENTED TO ROOM AND UNIT. KRISTOPHER JIMENEZ WILL BE PRIMARY CONTACT.
[2023-10-08] MEDS ORDERED: HYDMOR2 PO (16:21)
[2023-10-08] MEDS ORDERED: Loratadine10 MG PO (16:22)
[2023-10-08] MEDS ORDERED: OMEP20ER PO (16:28)
[2023-10-08] MEDS ORDERED: FURO40 PO (16:29)
[2023-10-08] MEDS ORDERED: ASCO500 PO (16:32)
[2023-10-08] MEDS ORDERED: IRON PO (16:32)
[2023-10-08] MEDS ORDERED: FIASP 100100 UNIT/3 SC (16:35)
[2023-10-08] MEDS ORDERED: Acetaminophen325 M1 PO (16:36)
--- NOTE | 2023-10-08 16:38 | NUR ---
MED REC COMPLETE. HOME CPAP AT BEDSIDE.
--- NOTE | 2023-10-08 17:37 | NUR ---
SHIFT SUMMARY: PATIENT ABLE TO VOID 50ML OF CLEAR DARK YELLOW URINE, DENIES PAIN WITH URINATION. REMAINS ON ROOM AIR SATING ABOVE 95%. TELE CONTINUES TO SHOW AFIB WITH HR 80-100'S. BP STABLE. DENIES NAUSEA AT THIS TIME AND PATIENT IS SITTING ON EDGE OF BED EATING DINNER. DAUGHTER AT BEDSIDE. IV FLUIDS CONTINUE TO INFUSE. 1900 LABS ORDERED. CALL LIGHT IN REACH. PATIENT DENIES NEEDS AT THIS TIME.
[2023-10-08 19:32] LABS: Bun/Creatinine Ratio 12.1 (12.0-20.0); Calcium, Blood 9.2 mg/dL (8.5-10.1); Creatinine, Blood 10.4 mg/dL (0.60-1.20); Potassium, Blood 6.5 mmol/L (3.5-5.5)
[2023-10-08 22:38] LABS: Albumin, Blood 3.1 g/dL (3.4-5.0); Anion Gap 27 mmol/L (6-16); Blood Urea Nitrogen 123 mg/dL (8-24); Bun/Creatinine Ratio 12.1 (12.0-20.0); CO2, Blood 18 mmol/L (21-32); Chloride, Blood 89 mmol/L (98-108); Glomerular Filtration Rate 5 (60-); Glucose, Blood 81 mg/dL (70-99); Potassium, Blood 5.8 mmol/L (3.5-5.5); Sodium, Blood 134 mmol/L (136-145)
--- NOTE | 2023-10-08 23:28 | NUR ---
ASSUMPTION OF CARE/ WORSENING LABS: PATIENT IS ALERT AND ORIENTED X 4. SPO2 >96% ON RA OR CPAP, POOR PLETH AT TIMES. PATIENT IS IN AFIB WITH A SLOWLY TRENDING/INCREASING HEARTRATE. PATIENT DID NOT RECIEVE BETA RICHARD AND WANTED TO START IN THE MORNINING BLOOD PRESSURE WAS SOFTER SYSTOLICALLY. PATIENT HAS BEEN ABLE TO TOLERATE SMALL PO INTAKE. MILD EDEMA R > L BLE. INFUSING 1/2 NS WITH BICARB. PATIENT STILL WITH MINIMAL VOIDING AND ORDERS FROM DR. SANDY FOR ROJAS PLACEMENT. WILL BLADDER TRAIN AND REASSESS. BLADDER SCAN SEE BLADDER MANAGEMENT. PATIENT EDUCATED WELL ON CURRENT SITUATION GOALS/ PLAN OF CARE, MEDICATIONS AND IV DEVICES FOR >2HOURS. WORSENING LABS: K+ INCREASED ALONG WITH CREAT SLIGHTLY WORSE. PATIENT WAS GIEVEN HYPERKALEMIC MEDICATIONS: IV INSULIN 10 UNITS BELKIS GLUCONATE 1/2NS SODIUM BICARB SWITCHED TO D5 W/ SODIUM BICARB SODIUM BICARB PUSH D5 BOLUS ( EQUIVALENT TO D50 PUSH ) PATIENT RESPONDING TO LABS. INCREASED CBG CHECKS FROM Q2 TO Q1. IMPROVED WITH EACH CHECK, PATIENT RESPONDING TO TREATMENT
[2023-10-08 23:54] LABS: Bun/Creatinine Ratio 12.5 (12.0-20.0); Calcium, Blood 8.8 mg/dL (8.5-10.1); Creatinine, Blood 10.2 mg/dL (0.60-1.20); Potassium, Blood 5.4 mmol/L (3.5-5.5)
[2023-10-09] VITALS (10 sets, daily range): BP systolic 94–131; BP diastolic 44–70
--- NOTE | 2023-10-09 03:30 | NUR ---
EOS: PAITENT HAS BEEN BLADDER TRAINING AND VOIDING HAS BEEN MINIMAL, HOWEVER < 200. NO ROJAS PLACED AT THIS TIME WILL RELAY TO DAY RN. AFIB WITH MINIMALLY INCREASED HR IN THE 100-110'S WITH OCCASSIONALLY RARE JUMP TO 130'S WITH ELECTRONIC TELE READ. PATIENT IS ASYMPTOMATIC, MORE SHAKEY AND UNSTEADY THIS AM VERY ASSSUMPTION OF CARE. PATIENT ALERT AND ORIENTED WELL, TOLERATING D5 SODIUM BICARB WELL, WILL ECTOR CBG WITH AM LABS AND CALL TO SWITCH BACK TO /2 NS WHEN RESULTS NEED TO BE CALLED TO NEPHROLOGY. DENIES CHEST PAIN PRESSURE, SOB WITH EXERTION. OF NOTE: PATIENT IS RANDOMLY HAVING HICUPPS WHICH NEPHROLOGY IS AWARE THAT STARTED APPROXIMATELY 2 DAYS AGO, NOTED TO BE WORSE AFTER MOVEMENT
[2023-10-09 04:18] LABS: BASOPHILS ABSOLUTE AUTO 0.03 K/mm3 (0.00-0.23); BASOPHILS PERCENT AUTO 0 % (0-2); EOSINOPHILS ABSOLUTE AUTO 0.02 K/mm3 (0.00-0.68); EOSINOPHILS PERCENT AUTO 0 % (0-6); Hematocrit 24.5 % (37.0-53.0); Hemoglobin 8.5 g/dL (13.5-17.5); IMMATURE GRAN PERCENT AUTO 1 % (0-1); LYMPHOCYTES ABSOLUTE AUTO 2.36 K/mm3 (0.84-5.20); LYMPHOCYTES PERCENT AUTO 22 % (21-46); MONOCYTES ABSOLUTE AUTO 1.09 K/mm3 (0.16-1.47); MONOCYTES PERCENT AUTO 10 % (4-13); Mean Corpuscular HGB 32.8 pg (26.0-34.0); Mean Corpuscular HGB Conc 34.7 g/dL (31.5-36.5); Mean Corpuscular Volume 95 fL (80-100); Mean Platelet Volume 10.4 fL (9.1-12.4); NEUTROPHILS ABSOLUTE AUTO 6.97 K/mm3 (1.96-9.15); NEUTROPHILS PERCENT AUTO 66 % (41-73); Platelet Count 117 K/mm3 (150-400); RDW Coefficient Variation 15.4 % (11.7-14.2); Red Blood Cell Count 2.59 M/mm3 (4.30-5.90); White Blood Cell Count 10.57 K/mm3 (4.00-11.30)
[2023-10-09 04:48] LABS: Magnesium, Blood 1.6 mg/dL (1.6-2.4); Uric Acid, Blood 7.4 mg/dL (3.5-7.2)
[2023-10-09 04:56] LABS: Alanine Aminotransfer (ALT/SGP 17 U/L (12-78); Albumin/Globulin Ratio 1.2 (0.8-1.8); Alk Phos 142 U/L (50-136); Anion Gap 23 mmol/L (6-16); Aspartate Aminotrans (AST/SGOT 15 U/L (12-37); Bilirubin, Total 0.5 mg/dL (0.1-1.0); Blood Urea Nitrogen 123 mg/dL (8-24); Bun/Creatinine Ratio 12.2 (12.0-20.0); CO2, Blood 22 mmol/L (21-32); Calcium, Blood 8.6 mg/dL (8.5-10.1); Chloride, Blood 85 mmol/L (98-108); Globulin, Blood 2.4 g/dL (2.2-4.0); Glomerular Filtration Rate 5 (60-); Glucose, Blood 165 mg/dL (70-99); Phosphorus, Blood 10.4 mg/dL (2.5-4.9); Potassium, Blood 5.3 mmol/L (3.5-5.5); Sodium, Blood 130 mmol/L (136-145); Total Protein, Blood 5.4 g/dL (6.4-8.2)
[2023-10-09 07:32] LABS: Source, Urine Foley catheter
[2023-10-09 07:41] LABS: Appearance, Urine Clear (Clear); Bilirubin, Urine Neg (Neg); Blood, Urine 1+ (Neg); Color, Urine Yellow (P-Yellow); Glucose Qualitative, Urine Neg (Neg); Ketones, Urine 1+ (Neg); Leukocyte Esterase, Urine Neg (Neg); Nitrite, Urine Neg (Neg); Protein, Urine 4+ (Neg); Specific Gravity, Urine 1.015 (1.003-1.022); Urobilinogen, Urine NORM (Normal)
[2023-10-09 07:49] LABS: Red Blood Cells, Urine 0-2 /hpf (0-2)
[2023-10-09 07:51] LABS: Amorphous Light (0-Heavy); Bacteria Mod /hpf; Mucus Light (0-Heavy); Renal Epithelial Rare /hpf (0-Rare); Squamous Epithelial Cells Not Seen /hpf (Few)
--- NOTE | 2023-10-09 09:15 | NUR ---
AM NOTE: PATIENT ALERT AND ORIENTED X4. DAUGHTER TO BRING IN HEARING AID WOLF HUNTER THIS AM. DENIES NUMBNESS/TINGLING. PATIENT STATES HE IS FEELING BETTER COMPARED TO YESTERDAY. ABLE TO STAND WITH 1 PERSON ASSIST. UP IN RECLINER. TELE SHOWING AFIB/PACED WITH HR 80-110'S. SBP 110'S. DENIES CHEST PAIN/PRESSURE/PALPITATIONS. EDEMA NOTED IN BLE. SC HEPARIN GIVEN THIS AM. PLAN FOR ECHO TODAY. ON ROOM AIR SATING ABOVE 95%. EVEN AND UNLABORED RESPIRATIONS. LUNGS SOUNDING CLEAR AND DIM IN BASES. OCCASIONAL MOIST/LOOSE COUGH. SCANT AMOUNT OF BLOOD IN SPUTUM THIS AM, MD JEFF AWARE. PATIENT STATES HE THINKS IT IS FROM HIS THROAT BEING DRY. DENIES SOB/COUGH. DENIES ABDOMINAL PAIN/NAUSEA THIS AM. INTERMIT HICCUPS WHEN DRINKING WATER. BOWEL TONES PRESENT. ROJAS PLACED BY NOC SHIFT, DRAINING CLEAR/YELLOW URINE. RENAL ULTRASOUND COMPLETED THIS AM. ABLE TO EAT OATMEAL THIS AM WITHOUT N/V. 24 URINE STARTED 10/09 AT 0840AM. SKIN OVERALL C/D/I WITH SCATTERED BRUISING. UP IN RECLINER AT THIS TIME. IV FLUIDS INFUSING PER EMAR. MD SANDY AND MD JEFF BY THIS AM. PATIENT TALKING TO FAMILY ON PERSONAL CELLPHONE. DENIES NEEDS. CALL LIGHT IN REACH.
--- NOTE | 2023-10-09 17:49 | NUR ---
24 HOUR URINE RESTARTED AT ON 10/09 AT 1700. NO ACUTE CHANGES. VITAL SIGNS REMAIN STABLE THROUGHOUT THE DAY. UP IN CHAIR FOR MEALS. REMAINS ON ROOM AIR WHEN AWAKE AND CPAP WHEN SLEEPING. RENAL US COMPLETED THIS SHIFT. Q2 BLOOD SUAGRS. TELE CONTINUES TO SHOW AFIB/PACED WITH HR 80-90'S. NO TELE EVENTS. CALL LIGHT IN REACH. UP TO BSC X1 WITH BOWEL MOVEMENT. ROJAS CATH CONTINUES TO DRAIN.
--- NOTE | 2023-10-09 22:52 | NUR ---
ASSUMPTION OF CARE: ONLY CHANGES ARE ECHO AN DRENAL US COMPLETE SEE REPORT.LASTLY 24 HOUR URINE. PATIENT IMPROVING NO CONCERNS DENIES CHEST PAIN PRESSURE OR SOB. IMPROVED OVERALL FEELING .HR IN BETTER CONTORLL WITH METROPOLOL. EDEMA R>L SLIGHTLY IMPROVED. ROJAS STILL DRAINING. NO INCREASED DISTENTION WILL CONTINUE TO MONITOR
[2023-10-10] VITALS (7 sets, daily range): BP systolic 99–129; BP diastolic 47–83
--- NOTE | 2023-10-10 03:26 | NUR ---
EOS: NO CHANGES FROM ASSUMPTION OF CARE. VSS, AFEBRILE. 24 HOUR URINE STILL BEING COLLECTED. WILL CONTINUE TO MONITOR
[2023-10-10 05:14] LABS: Hematocrit 22.8 % (37.0-53.0); Hemoglobin 7.9 g/dL (13.5-17.5)
[2023-10-10 06:08] LABS: Albumin, Blood 2.9 g/dL (3.4-5.0); Anion Gap 16 mmol/L (6-16); Blood Urea Nitrogen 129 mg/dL (8-24); Bun/Creatinine Ratio 11.6 (12.0-20.0); CO2, Blood 28 mmol/L (21-32); Calcium, Blood 8.4 mg/dL (8.5-10.1); Chloride, Blood 86 mmol/L (98-108); Glomerular Filtration Rate 4 (60-); Glucose, Blood 168 mg/dL (70-99); Phosphorus, Blood 9.2 mg/dL (2.5-4.9); Potassium, Blood 4.2 mmol/L (3.5-5.5); Sodium, Blood 130 mmol/L (136-145)
--- NOTE | 2023-10-10 15:51 | NUR ---
Upon receiving a referral for spiritual care, I visited the patient. He is sitting on the EOB and alert. He immediately tells me about his medical problems and the plan of care moving forward. He shares about how he is processing the diagnosis and that his number one goal is to live. He shares about his 's struggles with short term memory loss and the challenge that has been. He speaks of the solid support that he has from his dtr and son that live locally (there are more children and step children in the family unit as well). He believes in God but has low levels of trust in organized [employer] and prefers to stay away from bahai. He finds strength and comfort from his family and from simply taking each day as it comes. I normalize his experience, reinforce helpful attitudes and provide therapeutic listening and a calming presence. Patient showed signs of being uplifted and welcomes another vist from spiritual care.
[2023-10-10 16:13] LABS: Hematocrit 23.7 % (37.0-53.0); Hemoglobin 8.2 g/dL (13.5-17.5)
[2023-10-10 17:09] LABS: Albumin, Blood 2.9 g/dL (3.4-5.0); Anion Gap 18 mmol/L (6-16); Blood Urea Nitrogen 138 mg/dL (8-24); CO2, Blood 27 mmol/L (21-32); Calcium, Blood 8.6 mg/dL (8.5-10.1); Chloride, Blood 84 mmol/L (98-108); Glomerular Filtration Rate 4 (60-); Glucose, Blood 248 mg/dL (70-99); Phosphorus, Blood 8.8 mg/dL (2.5-4.9); Sodium, Blood 129 mmol/L (136-145)
--- NOTE | 2023-10-10 18:10 | NUR ---
SHIFT SUMMARY PT IS A&OX4, CALLS APPROPRIATELY, AND CAN MAKE HIS NEEDS KNOWN. ON TELE HE HAS BEEN AFIB 80'S-90'S ON TELE W/ NO REPORTS OF ANY ANGINA OR CHEST PRESSURE. HE HAS BEEN ON RA ALL DAY W/ SP02 >90%. HE WEARS THE CPAP WHEN ASLEEP. WE DID SEND OFF HIS 2400 URINE AT 1700 TODAY. HE HAS BEEN STRICT I &O AND DR. SANDY HAS BEEN FOLLOWING THE PT'S CARE CLOSELY. WE HAD NO ACUTE EVENT'S TODAY. FIRE IGNITION RISK HAS BEEN ASSESSED AND EDUCATION HAS BEEN PROVIDED.
[2023-10-10 18:26] LABS: Protein, Urine Quantitative 87.4 mg/dL (0.0-11.9)
--- NOTE | 2023-10-10 22:30 | NUR ---
ONLY CHANGES FROM PREVIOUS SHIFT IS HTAT PATIENT HAS NOW RECIEVED 13M OF BUMEX, LABS ARE WORSENING. DENIES CHEST PAIN PRESSURE OR OSB. IMPROVED MUSCLE STRENGTH. LUNG OSUNDS ARE SLIGHLTY WORSE, AND ABD SEEMS MILDLY LARGER. EDEMA WORSE IN THE LEGS, MOVED MORE EASILY WITH THAN PREIVOUSLY, ROJAS STILL WORKING, CATH CARE PROVIDED. SPO2 >96% ON RA. CPAP WHILE SLEEPING. PATIENT HAS BEEN COOPERATIVE WITH CARE ALERT AND ORIENTED X4 WILL CONTINUE TO MONITOR UNTIL SHIFT CHANGE.
[2023-10-11 03:41] VITALS: BP 122/67
[2023-10-11 04:24] LABS: Hematocrit 22.9 % (37.0-53.0); Hemoglobin 8.1 g/dL (13.5-17.5)
[2023-10-11 05:05] LABS: Albumin, Blood 2.8 g/dL (3.4-5.0); Bilirubin, Direct 0.2 mg/dL (0.0-0.3); Bilirubin, Indirect 0.4 mg/dL (0.1-0.7); Bilirubin, Total 0.6 mg/dL (0.1-1.0); Calcium, Blood 8.4 mg/dL (8.5-10.1); Globulin, Blood 2.8 g/dL (2.2-4.0); Potassium, Blood 3.7 mmol/L (3.5-5.5); Total Protein, Blood 5.6 g/dL (6.4-8.2); Uric Acid, Blood 7.9 mg/dL (3.5-7.2)
[2023-10-11 05:07] LABS: Bun/Creatinine Ratio 11.9 (12.0-20.0); Creatinine, Blood 11.4 mg/dL (0.60-1.20); Phosphorus, Blood 8.5 mg/dL (2.5-4.9)
--- NOTE | 2023-10-11 05:53 | NUR ---
EOS: NO CHANGE FROM ASSUMPTION OF CARE. STILL DENIES CHEST PAIN PRESSURE OR SOB. WILL CONTINUE TO MONITOR.
[2023-10-11 08:55] VITALS: BP 124/59
--- NOTE | 2023-10-11 10:58 | NUR ---
The pt has been alert, oriented and cooperative this morning. His complaint this morning was pain in his belly, "excruciating" with coughing and burping. He also has chronic left shoulder pain, radiating to his arm and hand. States that Dr. smith told him that it is probably from lymph edema causing pressure on his nerves. He described this to Dr. Hernández and p.o. prn dilaudid was ordered and given to him, with good relief.
[2023-10-11 11:15] VITALS: BP 111/68
--- NOTE | 2023-10-11 11:17 | NUR ---
Call to Dr. Johnson regarding CBG trending up, last check was 296. Pt states he takes 30 units of SemGlee BID, and this was passed along to the resident doctor. He said that he will look into it.
[2023-10-11 11:54] LABS: Anion Gap 17 mmol/L (6-16); Blood Urea Nitrogen 136 mg/dL (8-24); Bun/Creatinine Ratio 12.3 (12.0-20.0); CO2, Blood 27 mmol/L (21-32); Calcium, Blood 8.3 mg/dL (8.5-10.1); Chloride, Blood 85 mmol/L (98-108); Glomerular Filtration Rate 4 (60-); Glucose, Blood 321 mg/dL (70-99); Phosphorus, Blood 8.4 mg/dL (2.5-4.9); Potassium, Blood 3.8 mmol/L (3.5-5.5); Sodium, Blood 129 mmol/L (136-145)
[2023-10-11 14:46] LABS: ANTI-NUCLEAR AB ANA,IGG ELISA None Detected (None Detected)
[2023-10-11 15:53] VITALS: BP 139/61
[2023-10-11 16:20] LABS: Albumin, Blood 2.7 g/dL (3.4-5.0); Anion Gap 15 mmol/L (6-16); Blood Urea Nitrogen 132 mg/dL (8-24); CO2, Blood 27 mmol/L (21-32); Calcium, Blood 8.1 mg/dL (8.5-10.1); Chloride, Blood 87 mmol/L (98-108); Glomerular Filtration Rate 4 (60-); Glucose, Blood 315 mg/dL (70-99); Phosphorus, Blood 7.9 mg/dL (2.5-4.9); Potassium, Blood 3.6 mmol/L (3.5-5.5); Sodium, Blood 129 mmol/L (136-145)
--- NOTE | 2023-10-11 17:30 | NUR ---
Minimal assistance needed to help him get to side of bed to dangle there to eat dinner. Scheduled meds given; he also asked for pain pill. given dilaudid p.o. per prn orders.
[2023-10-11 21:16] VITALS: BP 128/63
[2023-10-11 23:38] VITALS: BP 125/64
[2023-10-11 23:53] LABS: Albumin, Blood 2.7 g/dL (3.4-5.0); Anion Gap 14 mmol/L (6-16); Blood Urea Nitrogen 131 mg/dL (8-24); CO2, Blood 29 mmol/L (21-32); Calcium, Blood 8.2 mg/dL (8.5-10.1); Chloride, Blood 89 mmol/L (98-108); Glomerular Filtration Rate 4 (60-); Glucose, Blood 267 mg/dL (70-99); Phosphorus, Blood 7.6 mg/dL (2.5-4.9); Potassium, Blood 3.5 mmol/L (3.5-5.5); Sodium, Blood 132 mmol/L (136-145)
[2023-10-12 03:37] VITALS: BP 111/66
[2023-10-12 04:01] LABS: Hematocrit 23.7 % (37.0-53.0); Hemoglobin 8.3 g/dL (13.5-17.5)
[2023-10-12 04:35] LABS: Magnesium, Blood 2.1 mg/dL (1.6-2.4)
[2023-10-12 05:44] LABS: Albumin, Blood 2.8 g/dL (3.4-5.0); Anion Gap 13 mmol/L (6-16); Blood Urea Nitrogen 130 mg/dL (8-24); Bun/Creatinine Ratio 12.4 (12.0-20.0); CO2, Blood 29 mmol/L (21-32); Calcium, Blood 8.2 mg/dL (8.5-10.1); Chloride, Blood 89 mmol/L (98-108); Glomerular Filtration Rate 5 (60-); Glucose, Blood 255 mg/dL (70-99); Phosphorus, Blood 7.6 mg/dL (2.5-4.9); Potassium, Blood 3.5 mmol/L (3.5-5.5); Sodium, Blood 131 mmol/L (136-145)
--- NOTE | 2023-10-12 06:20 | NUR ---
SHIFT SUMMARY PATIENT ALERT AND ORIENTED X4, 1 ASSIST WITH FWW TO THE RESTROOM. MEDICATED PEREMAR FOR PAIN. DENIED CHEST PAIN AND SHORTNESS OF BREATH. WORE CPAP OVERNIGHT WITH SPO2 >90%. VITAL SIGNS STABLE, AFIB IN THE 80'S ON TELE. NO ACUTE ISSUES NOTED OVERNIGHT. WILL CONTINUE TO MONITOR. CALL LIGHT WITHIN REACH.
[2023-10-12 07:03] VITALS: BP 147/81
--- NOTE | 2023-10-12 07:03 | NUR ---
Pt is sitting on side of bed, preparing to take a shower with PCT assisting him.
--- NOTE | 2023-10-12 08:23 | NUR ---
Ambulatory to bathroom after breakfast to attempt to have BM. Was not able to yesterday, he said. Having a lot of gas. Using geriwalker for mobility, and able to do so independently.
--- NOTE | 2023-10-12 08:42 | NUR ---
Unable to have a BM. Spoke with the residents about adding bowel care. Pt also said that he has some soreness on his bottom. Noted redness on his bilateral buttocks. Will increase his repositioning frequency today and apply protective barrier ointment for protection. Pt states that he is still having some mild belly pain, but states relief with the oral dilaudid that he's been receiving. LUng sounds are clear. Still has edema of the legs bilaterally. Tight elastic socks removed and replaced with bariatric soft elastic socks, legs elevated on pillows while he is up in recliner at this time. Mahmood catheter is draining clear, light yellow urine.
--- NOTE | 2023-10-12 11:04 | NUR ---
Call to Dr Meredith per his request to report the past 4 hours intake and output. New order received for BUmex and Kcl administration today at 4 pm.
[2023-10-12 11:30] VITALS: BP 117/73
--- NOTE | 2023-10-12 11:51 | NUR ---
Call to Dr. Alex Edwards regarding CBG 365.No new orders received. Reminded him that the pt takes Semglee 30 units BID at baseline; current orders are only 10 units at bedtime in the hospital.
--- NOTE | 2023-10-12 12:33 | NUR ---
Helped back to bed from the chair. IVPB infusing antiobiotic at this time. He would like to take a nap now. Home CPAP on. Powder applied to scrotum due to itchyness, per pt.
[2023-10-12 15:46] VITALS: BP 111/67
[2023-10-12 19:33] VITALS: BP 119/56
[2023-10-12 23:06] VITALS: BP 116/63
[2023-10-13 04:00] VITALS: BP 110/65
[2023-10-13 04:17] LABS: Hematocrit 23.2 % (37.0-53.0)
[2023-10-13 04:51] LABS: Magnesium, Blood 2.2 mg/dL (1.6-2.4)
[2023-10-13 05:19] LABS: Albumin, Blood 2.7 g/dL (3.4-5.0); Anion Gap 10 mmol/L (6-16); Blood Urea Nitrogen 120 mg/dL (8-24); CO2, Blood 34 mmol/L (21-32); Calcium, Blood 8.3 mg/dL (8.5-10.1); Chloride, Blood 92 mmol/L (98-108); Glucose, Blood 103 mg/dL (70-99); Phosphorus, Blood 6.6 mg/dL (2.5-4.9); Potassium, Blood 2.9 mmol/L (3.5-5.5); Sodium, Blood 136 mmol/L (136-145)
[2023-10-13 05:22] LABS: Bun/Creatinine Ratio 12.2 (12.0-20.0); Creatinine, Blood 9.87 mg/dL (0.60-1.20); Glomerular Filtration Rate 5 (60-)
--- NOTE | 2023-10-13 06:15 | NUR ---
SHIFT SUMMARY NO ACUTE CHANGES THIS SHIFT. VSS. AXO4. IN AFIB, CONTROLLED 80'S WITH OCCASIONAL PACER SPIKES. USING CPAP WHILE ASLEEP OR RA WHILE AWAKE. ROJAS PATENT. CREATININE TRENDING DOWN. OTHERWISE PT RESTING QUIETELY.
[2023-10-13 09:14] VITALS: BP 99/74
--- NOTE | 2023-10-13 11:00 | NUR ---
Ambulatory with staff member around the PCU/ICU loop, once, while using the ;walker. He tolerated it really well, talking during the activity with only very mild dyspnea.
[2023-10-13 11:51] VITALS: BP 110/69
--- NOTE | 2023-10-13 11:55 | NUR ---
With only supervision, he was able to get himself up sitting on the side of the bed and then used the walker to transfer to the chair for lunch. Sitting up eating at this time.
[2023-10-13 13:02] LABS: Creatinine, Blood 9.47 mg/dL (0.60-1.20); Potassium, Blood 3.6 mmol/L (3.5-5.5)
--- NOTE | 2023-10-13 14:33 | NUR ---
Spiritual care visit conducted. Patient is much more alert and talkative today. He admits to feeling much improved and proudly speaks of his stroll around PCU. His voice is stronger and his mood is lifted. He tells me that his main concern continue to be his spouse who is home alone during the day and because of her extreme short term memory is confused about why the patient is in the hospital and not at home and she wonders when he will return. The patient tells her several times a day about his condition and the time frame for him returning home. He shares his concerns about his cancer and the financial struggle he is having to get monetary aide to assist with the treatment drugs that have been prescribed for him. I provide anxiety containment, gentle summer camp counselor, and prayer. Patient responded well and showed signs of reduced stress. I will continue to remain available to patient and family.
--- NOTE | 2023-10-13 15:42 | NUR ---
Pt attempted again to have a BM in the bathroom, unsuccessfully.
[2023-10-13 16:25] LABS: GBM, IGG MULTIPLEX BEAD ASSAY 0 AU/mL (0-19); MYELOPEROXIDASE (MPO) AB,IGG 0 AU/mL (0-19); SERINE PROTEINASE 3 PR3 AB,IGG 0 AU/mL (0-19)
[2023-10-13 16:29] LABS: Albumin, Blood 2.6 g/dL (3.4-5.0); Anion Gap 9 mmol/L (6-16); Blood Urea Nitrogen 121 mg/dL (8-24); Bun/Creatinine Ratio 12.6 (12.0-20.0); CO2, Blood 33 mmol/L (21-32); Calcium, Blood 8.5 mg/dL (8.5-10.1); Chloride, Blood 92 mmol/L (98-108); Creatinine, Blood 9.59 mg/dL (0.60-1.20); Glomerular Filtration Rate 5 (60-); Glucose, Blood 211 mg/dL (70-99); Phosphorus, Blood 5.7 mg/dL (2.5-4.9); Potassium, Blood 3.3 mmol/L (3.5-5.5); Sodium, Blood 134 mmol/L (136-145)
[2023-10-13 16:41] LABS: ALBUMIN %,URINE 79.5 %; ALPHA-1 %,URINE 5.4 %; ALPHA-2 %,URINE 4.2 %; GAMMA GLOBULIN %,URINE 0.9 %; HOURS COLLECTED 24 hr; TOTAL PROTEIN,URINE-PER VOLUME 51 mg/dL; TOTAL VOLUME 1000 mL; URINE 24 HOUR PROTEIN 510 mg/d (40-150)
[2023-10-13 19:20] LABS: CORTISOL,U FREE - RATIO TO CRT 6.65 ug/g CRT; CORTISOL,URINE FREE - PER 24H 3.6 ug/d (<=60.0); CORTISOL,URN FREE - PER VOLUME 3.59 ug/L; CREATININE,URINE - PER 24H 540 mg/d (800-2100); CREATININE,URINE - PER VOLUME 54 mg/dL; HOURS COLLECTED 24 hr; TOTAL VOLUME 1000 mL
[2023-10-13 20:20] VITALS: BP 153/79
--- NOTE | 2023-10-14 02:53 | NUR ---
TRANSFER NO ACUTE CHANGES THIS SHIFT. AXO4. VSS. FINE CRACKLES REMAIN TO LUNG BASES, IMPROVING. USING CPAP TO SLEEP, RA WHILE AWAKE. SMALL SMEAR BL AT BEGINNING OF SHIFT AFTER AMBULATING AROUND UNIT AND TO ICU TWO TIMES, WITHOUT INCIDENT. PT SHOWED IMPROVEMENT IN STAMINA WHILE WALKING. ROJAS PATENT / DRAINING TO GRAVITY. OTHERWISE, PT RESTING QUIETELY. REPORT GIVEN TO MARIELY PRASAD RN. PT TRANSFERRED TO 227 @ [phone]
[2023-10-14 03:14] VITALS: BP 117/71
--- NOTE | 2023-10-14 03:14 | NUR ---
SUMMARY RECEIVED PT FROM PCU TO RM 227 PER BED WITH NURSES IN ATTENDANCE. PT IN NO DISTRESS.ROJAS PATENT.CREATININE LEVEL IMPROVING.DR TO SEE PT THIS AM AND ORDERS RECEIVED.
[2023-10-14 04:46] LABS: Hematocrit 27.1 % (37.0-53.0); Hemoglobin 9.2 g/dL (13.5-17.5)
[2023-10-14 05:22] LABS: Magnesium, Blood 2.2 mg/dL (1.6-2.4)
[2023-10-14 05:28] LABS: Albumin, Blood 2.9 g/dL (3.4-5.0); Anion Gap 9 mmol/L (6-16); Blood Urea Nitrogen 109 mg/dL (8-24); Bun/Creatinine Ratio 12.3 (12.0-20.0); CO2, Blood 31 mmol/L (21-32); Chloride, Blood 95 mmol/L (98-108); Creatinine, Blood 8.89 mg/dL (0.60-1.20); Glomerular Filtration Rate 6 (60-); Glucose, Blood 148 mg/dL (70-99); Phosphorus, Blood 5.1 mg/dL (2.5-4.9); Potassium, Blood 3.2 mmol/L (3.5-5.5); Sodium, Blood 135 mmol/L (136-145)
[2023-10-14 07:32] VITALS: BP 125/69
[2023-10-14 16:24] VITALS: BP 125/83
--- NOTE | 2023-10-14 18:04 | NUR ---
SUMMARY: PT IS POD5 LAPAROSCOPY WITH LYSIS OF ADHESIONS. PT IS A/O, VSS TELE STABLE. PT HAD BM TODAY AND NGT DC'D BY DR. BLAND. PT REPORTS ABD FEELS MUCH SOFTER COMPARED TO WHAT IT HAS BEEN, AMOS OUTPUT 5ML, SS. DIET ADVANCED TO CLEAR LIQUIDS IN THE AFTERNOON AND PT TOLERATING WELL. PT TO CONTINUE ON CLINIMIX AND LIPIDS TONIGHT PER DR. BLAND AND DC TOMORROW. PT PAIN WELL MANAGED WITH HYDROMORPHONE PRN. NO ACUTE CONCERNS.
--- NOTE | 2023-10-14 18:19 | NUR ---
SUMMARY: PT ADMITTED FOR ACUTE KIDNEY FAILURE. PT A/O, VSS. NO ACUTE CHANGE TODAY. LUNGS SOUND CLEAR AND DIMINISHED. CONTINUES ON RA AND CPAP AT [facility]. TELE STABLE THIS SHIFT. PT AMBULATORY IN ROOM WITH FWW AND SBA. PT HAS REPORTED MINIMAL PAIN, MEDICATED PRN. BLADDER TRAINING COMPLETED, PT TOLERATED WELL AND PER DR. DU ROJAS DC'Lazara TONIGHT. NOW AWAITING VOID. NO SAFETY CONCERNS.
[2023-10-14 20:27] VITALS: BP 131/72
[2023-10-15 04:52] VITALS: BP 122/65
[2023-10-15 05:43] LABS: Hematocrit 25.7 % (37.0-53.0); Hemoglobin 8.6 g/dL (13.5-17.5)
--- NOTE | 2023-10-15 06:28 | NUR ---
SHIFT SUMMARY NO ACUTE CHANGES OVER NIGHT, PT REMAINS A&O X4, ON RA, CPAP WHILE SLEEPING, SPO2 >97%, RESP UNLABORED, VSS, AFIB PER BARREL FILLER, DENIES CP/PRESSURE, ABD PAIN MANAGED PER EMAR, VOIDING WNL, DENIES NAUSEA, AMBULATED IN [place] X3 USING FWW, PT CALLS FOR ASSISTANCE PRN, RESTING IN BED AT THIS TIME, CALL LIGHT IN REACH, WCTM & REPORT TO DAY RN.
[2023-10-15 07:09] LABS: Magnesium, Blood 2.1 mg/dL (1.6-2.4)
[2023-10-15 07:25] LABS: Albumin, Blood 2.8 g/dL (3.4-5.0); Anion Gap 9 mmol/L (6-16); Blood Urea Nitrogen 116 mg/dL (8-24); Bun/Creatinine Ratio 14.1 (12.0-20.0); CO2, Blood 32 mmol/L (21-32); Calcium, Blood 9.4 mg/dL (8.5-10.1); Chloride, Blood 97 mmol/L (98-108); Creatinine, Blood 8.21 mg/dL (0.60-1.20); Glomerular Filtration Rate 6 (60-); Glucose, Blood 201 mg/dL (70-99); Phosphorus, Blood 4.9 mg/dL (2.5-4.9); Potassium, Blood 3.4 mmol/L (3.5-5.5); Sodium, Blood 138 mmol/L (136-145)
[2023-10-15 07:53] VITALS: BP 130/60
[2023-10-15 07:54] VITALS: BP 130/60
--- NOTE | 2023-10-15 11:44 | NUR ---
PT REPORTS DIFFICULTY WITH VOIDING, BLADDER SCAN VOLUME OF 701. WILL STRAIGHT CATH PER PROTOCOL.
[2023-10-15] MEDS ORDERED: POTA10T PO (13:00)
[2023-10-15] MEDS ORDERED: TAMS.4ER PO (13:01)
--- NOTE | 2023-10-15 14:07 | NUR ---
DISCHARGE PT LEFT VIA WHEELCHAIR. ROJAS PLACED PER PHYSICIAN ORDERS EDUCATION PROVIDED ON CARE. PT WILL FOLLOW UP WITH DR. SANDY ON TUESDAY FOR FURTHER CATHETER INSTRUCTIONS. PT AMBULATING WELL DURING SHIFT. NO PAIN OR NAUSEA. INSTRUCTIONS GONE OVER WITH SPOUSE AND DAUGHTER. PRESCRIPTIONS SENT TO [email or web address] PER PT REQUEST.
== END 2023-10-15 14:12 | disposition home or self-care (01) | DRG 682 ==
LOC: ER 11:07 → PCU 12:17 → SURS 10-14 03:14
PROVIDERS: Emergency Medicine; Family Medicine; Internal Medicine Nephrology; ADMIT Hospitalist
PROC: 5A09357 Assistance with Respiratory Ventilation, Less than 24 Consecutive Hours, Continuous Positive Airway Pressure (ICD-10-PCS; principal; 2023-10-13)
DX: N17.9 Acute kidney failure, unspecified (principal); I50.33 Acute on chronic diastolic (congestive) heart failure; J69.0 Pneumonitis due to inhalation of food and vomit; E87.1 Hypo-osmolality and hyponatremia; I48.19 Other persistent atrial fibrillation; E87.21 Acute metabolic acidosis; I13.0 Hypertensive heart and chronic kidney disease with heart failure and stage 1 through stage 4 chronic kidney disease, or unspecified chronic kidney disease; C85.10 Unspecified B-cell lymphoma, unspecified site; N18.32 Chronic kidney disease, stage 3b; K64.8 Other hemorrhoids; E11.22 Type 2 diabetes mellitus with diabetic chronic kidney disease; E86.9 Volume depletion, unspecified; D63.1 Anemia in chronic kidney disease; R33.9 Retention of urine, unspecified; E87.6 Hypokalemia; E11.649 Type 2 diabetes mellitus with hypoglycemia without coma; E83.39 Other disorders of phosphorus metabolism; E83.52 Hypercalcemia; G47.33 Obstructive sleep apnea (adult) (pediatric); E88.09 Other disorders of plasma-protein metabolism, not elsewhere classified; E87.5 Hyperkalemia; Z79.4 Long term (current) use of insulin; Z88.0 Allergy status to penicillin; Z79.84 Long term (current) use of oral hypoglycemic drugs; Z79.899 Other long term (current) drug therapy; Z79.01 Long term (current) use of anticoagulants; Z79.51 Long term (current) use of inhaled steroids; Z99.89 Dependence on other enabling machines and devices; Z86.010 Personal history of colon polyps; Z98.52 Vasectomy status; Z95.0 Presence of cardiac pacemaker; Z98.890 Other specified postprocedural states; Z79.2 Long term (current) use of antibiotics; Z88.5 Allergy status to narcotic agent
CPT/HCPCS: 36415; 51798; 74022; 74150; 76770; 80047; 80048; 80053; 80069; 80162; 81001; 82248; 82530; 82533; 82550; 82565; 82947; 83516; 83605; 83690; 83735; 84100; 84132; 84156; 84166; 84443; 84550; 85014; 85018; 85025; 86038; 86334; 86335; 87040; 87086; 93005; 93010; 93306; 94660; 94762; 96365; 96375; 99285-25; A9270; G0103; J0456; J0612; J0696; J0881; J1644; J1815; J2765; J3480; J7030; J7050; J7060; J7070

== ENCOUNTER → 2023-10-08 | Outpatient (CLI) | payer OTHER ==
[~2023-10-08] MED LIST changes: +ASCO500 PO; +Acetaminophen325 M1 PO; +DIGOX125 MC1 PO; -DIGOX250 MCG PO; +FIASP 100100 UNIT/3 SC; +FURO40 PO; +HYDMOR2 PO; +IRON PO; +Loratadine10 MG PO; +OMEP20ER PO
[2023-10-08 10:22] LABS: BASOPHILS ABSOLUTE AUTO 0.07 K/mm3 (0.00-0.23); BASOPHILS PERCENT AUTO 1 % (0-2); EOSINOPHILS PERCENT AUTO 0 % (0-6); Hematocrit 30.4 % (37.0-53.0); Hemoglobin 10.2 g/dL (13.5-17.5); IMMATURE GRAN PERCENT AUTO 2 % (0-1); LYMPHOCYTES ABSOLUTE AUTO 2.13 K/mm3 (0.84-5.20); LYMPHOCYTES PERCENT AUTO 14 % (21-46); MONOCYTES ABSOLUTE AUTO 1.58 K/mm3 (0.16-1.47); MONOCYTES PERCENT AUTO 10 % (4-13); Mean Corpuscular HGB 32.6 pg (26.0-34.0); Mean Corpuscular HGB Conc 33.6 g/dL (31.5-36.5); Mean Corpuscular Volume 97 fL (80-100); Mean Platelet Volume 9.6 fL (9.1-12.4); NEUTROPHILS ABSOLUTE AUTO 11.28 K/mm3 (1.96-9.15); NEUTROPHILS PERCENT AUTO 73 % (41-73); Platelet Count 165 K/mm3 (150-400); RDW Coefficient Variation 15.5 % (11.7-14.2); RDW Standard Deviation 54.8 fL (35.1-46.3); Red Blood Cell Count 3.13 M/mm3 (4.30-5.90); White Blood Cell Count 15.36 K/mm3 (4.00-11.30)
[2023-10-08 10:32] LABS: Albumin, Blood 3.8 g/dL (3.4-5.0); Albumin/Globulin Ratio 1.3 (0.8-1.8); Bilirubin, Total 0.6 mg/dL (0.1-1.0); Bun/Creatinine Ratio 11.3 (12.0-20.0); Calcium, Blood 10.2 mg/dL (8.5-10.1); Total Protein, Blood 6.8 g/dL (6.4-8.2)
[2023-10-08 10:33] LABS: Creatinine, Blood 11.38 mg/dL (0.60-1.20); Potassium, Blood 6.9 mmol/L (3.5-5.5)
== END ==
LOC: LAB 10:15 → LAB SHORT 10:15
PROVIDERS: Physician Assistant Medical
DX: R10.84 Generalized abdominal pain (principal)
CPT/HCPCS: 80053; 83690; 85025

== ENCOUNTER 2023-12-08 11:29 | Emergency (ER) | payer OTHER ==
[~2023-12-08] VITALS: Ht 172.7 cm; Wt 91.6 kg
[~2023-12-08 11:29] MED LIST changes: +ASCO500 PO; +Acetaminophen325 M1 PO; +FIASP 100100 UNIT/3 SC; +FURO40 PO; +HYDMOR2 PO; +IRON PO; +Loratadine10 MG PO; +OMEP20ER PO; +POTA10T PO
[2023-12-08 12:38] LABS: Source, Urine Clean Catch
[2023-12-08 12:41] LABS: Appearance, Urine Clear (Clear); Bilirubin, Urine Neg (Neg); Blood, Urine 1+ (Neg); Glucose Qualitative, Urine Neg (Neg); Ketones, Urine Neg (Neg); Leukocyte Esterase, Urine 1+ (Neg); Nitrite, Urine Neg (Neg); Protein, Urine Neg (Neg); Specific Gravity, Urine 1.015 (1.003-1.022); Urobilinogen, Urine NORM (Normal)
[2023-12-08 12:44] LABS: BASOPHILS ABSOLUTE AUTO 0.05 K/mm3 (0.00-0.23); BASOPHILS PERCENT AUTO 1 % (0-2); EOSINOPHILS PERCENT AUTO 3 % (0-6); Hematocrit 33.2 % (37.0-53.0); Hemoglobin 10.7 g/dL (13.5-17.5); IMMATURE GRAN ABSOLUTE AUTO 0.05 K/mm3 (0.00-0.10); IMMATURE GRAN PERCENT AUTO 1 % (0-1); LYMPHOCYTES ABSOLUTE AUTO 2.27 K/mm3 (0.84-5.20); LYMPHOCYTES PERCENT AUTO 37 % (21-46); MONOCYTES ABSOLUTE AUTO 0.75 K/mm3 (0.16-1.47); MONOCYTES PERCENT AUTO 12 % (4-13); Mean Corpuscular HGB 31.3 pg (26.0-34.0); Mean Corpuscular HGB Conc 32.2 g/dL (31.5-36.5); Mean Corpuscular Volume 97 fL (80-100); Mean Platelet Volume 10.5 fL (9.1-12.4); NEUTROPHILS ABSOLUTE AUTO 2.87 K/mm3 (1.96-9.15); NEUTROPHILS PERCENT AUTO 46 % (41-73); Platelet Count 92 K/mm3 (150-400); RDW Coefficient Variation 14.4 % (11.7-14.2); RDW Standard Deviation 50.7 fL (35.1-46.3); Red Blood Cell Count 3.42 M/mm3 (4.30-5.90); White Blood Cell Count 6.19 K/mm3 (4.00-11.30)
[2023-12-08 13:00] LABS: Color, Urine No Color (P-Yellow)
[2023-12-08 13:02] LABS: Squamous Epithelial Cells Few /hpf (Few); Transitional Epithelial Cells Rare /hpf (0-Rare)
[2023-12-08 13:03] LABS: Bacteria Few /hpf; Mucus Light (0-Heavy); Red Blood Cells, Urine 0-2 /hpf (0-2)
[2023-12-08 13:12] LABS: Albumin, Blood 3.5 g/dL (3.4-5.0); Albumin/Globulin Ratio 1.5 (0.8-1.8); Bun/Creatinine Ratio 17.9 (12.0-20.0); Calcium, Blood 8.7 mg/dL (8.5-10.1); Creatinine, Blood 1.96 mg/dL (0.60-1.20); Globulin, Blood 2.4 g/dL (2.2-4.0); Potassium, Blood 3.6 mmol/L (3.5-5.5); Total Protein, Blood 5.9 g/dL (6.4-8.2)
[2023-12-08 15:33] VITALS: BP 121/60
== END 2023-12-08 15:32 | disposition home or self-care (01) ==
LOC: ER 11:29
PROVIDERS: Physician Assistant
DX: S70.02XA Contusion of left hip, initial encounter (principal); E11.9 Type 2 diabetes mellitus without complications; I48.91 Unspecified atrial fibrillation; G47.30 Sleep apnea, unspecified; Z95.0 Presence of cardiac pacemaker; Z79.4 Long term (current) use of insulin; Z79.01 Long term (current) use of anticoagulants; Z79.899 Other long term (current) drug therapy; Z88.0 Allergy status to penicillin; Z88.5 Allergy status to narcotic agent; X58.XXXA Exposure to other specified factors, initial encounter
CPT/HCPCS: 74176; 80053; 81001; 85025; 87077; 87086; 87186; 99284-25

== ENCOUNTER 2024-02-27 15:50 | Emergency (ER) | payer OTHER ==
[~2024-02-27] VITALS: Ht 172.7 cm; Wt 93.4 kg
[~2024-02-27 15:50] MED LIST changes: +FERSU300 PO; +MELATONIN5 M5 PO; +PANT40 PO; +SULTRIDS PO
[2024-02-27 17:09] LABS: Albumin, Blood 2.8 g/dL (3.4-5.0); Albumin/Globulin Ratio 0.9 (0.8-1.8); Bun/Creatinine Ratio 19.9 (12.0-20.0); Calcium, Blood 9.5 mg/dL (8.5-10.1); Creatinine, Blood 2.67 mg/dL (0.60-1.20); Globulin, Blood 3.1 g/dL (2.2-4.0); Potassium, Blood 4.4 mmol/L (3.5-5.5); Total Protein, Blood 5.9 g/dL (6.4-8.2)
[2024-02-27] MEDS ORDERED: BRUKINSA80 MG PO (17:35)
[2024-02-27] MEDS ORDERED: ALLERGY RELIEF5 M1 (17:35)
[2024-02-27] MEDS ORDERED: NS 1,000 ML IV SCH (17:50)
[2024-02-27] MEDS ORDERED: Pantoprazole Sodium 40 MG Injection IV ONE (17:50)
[2024-02-27 18:07] LABS: International Normalized Ratio 1.03
[2024-02-27 19:24] LABS: BASOPHILS ABSOLUTE AUTO 0.03 K/mm3 (0.00-0.23); BASOPHILS PERCENT AUTO 0 % (0-2); EOSINOPHILS ABSOLUTE AUTO 0.03 K/mm3 (0.00-0.68); EOSINOPHILS PERCENT AUTO 0 % (0-6); IMMATURE GRAN ABSOLUTE AUTO 0.06 K/mm3 (0.00-0.10); IMMATURE GRAN PERCENT AUTO 1 % (0-1); LYMPHOCYTES ABSOLUTE AUTO 2.58 K/mm3 (0.84-5.20); LYMPHOCYTES PERCENT AUTO 38 % (21-46); MONOCYTES ABSOLUTE AUTO 0.85 K/mm3 (0.16-1.47); MONOCYTES PERCENT AUTO 13 % (4-13); Mean Corpuscular HGB 29.8 pg (26.0-34.0); Mean Corpuscular HGB Conc 30.3 g/dL (31.5-36.5); Mean Corpuscular Volume 98 fL (80-100); Mean Platelet Volume 10.3 fL (9.1-12.4); NEUTROPHILS ABSOLUTE AUTO 3.19 K/mm3 (1.96-9.15); NEUTROPHILS PERCENT AUTO 47 % (41-73); NRBC ABSOLUTE 0.02 K/mm3 (0.00-0.02); NRBC Auto 0.3 /100 WBC (0.0-0.2); Platelet Count 127 K/mm3 (150-400); RDW Coefficient Variation 17.7 % (11.7-14.2); RDW Standard Deviation 61.5 fL (35.1-46.3); Red Blood Cell Count 1.78 M/mm3 (4.30-5.90); White Blood Cell Count 6.74 K/mm3 (4.00-11.30)
[2024-02-27 19:28] LABS: Hematocrit 17.5 % (37.0-53.0); Hemoglobin 5.3 g/dL (13.5-17.5)
[2024-02-27 21:00] VITALS: BP 104/65
== END 2024-02-27 21:35 | disposition short-term general hospital (02) ==
LOC: ER 15:50
PROVIDERS: Physician Assistant; Student in an Organized Health Care Education/Training Program
DX: K92.2 Gastrointestinal hemorrhage, unspecified (principal); D64.9 Anemia, unspecified; C85.13 Unspecified B-cell lymphoma, intra-abdominal lymph nodes; N17.9 Acute kidney failure, unspecified; N18.31 Chronic kidney disease, stage 3a; Z88.0 Allergy status to penicillin; Z88.5 Allergy status to narcotic agent; Z79.899 Other long term (current) drug therapy; Z79.4 Long term (current) use of insulin; E11.22 Type 2 diabetes mellitus with diabetic chronic kidney disease; G47.30 Sleep apnea, unspecified
CPT/HCPCS: 36430; 74174; 80053; 82272; 82947; 85025; 85610; 85730; 86850; 86900; 86901; 86923; 93005; 93010; 96361; 96374-59; 99285-25; C9113; J7030; P9016; Q9967